=== PATIENT | female | born 1975 | race Two or more races ===

== ENCOUNTER 2024-05-07 00:37 | Emergency (ER) | payer BC, MEDICAID ==
[~2024-05-07] VITALS: Ht 165.1 cm; Wt 79.8 kg
[~2024-05-07 00:37] MED LIST: IBUP-1454
[2024-05-07 00:48] VITALS: BP 115/77; PULSE 80; RESP 16; O2SAT 98
[2024-05-07] MEDS ORDERED: APIX5TAB PO (04:04)
[2024-05-07] MEDS ORDERED: HYDR-4798 PO (04:04)
== END 2024-05-07 06:13 | disposition home or self-care (01) ==
LOC: EDSEX 00:37 → ER 00:37
DX: I82.402 Acute embolism and thrombosis of unspecified deep veins of left lower extremity (principal)